=== PATIENT | male | born 1980 ===

== ENCOUNTER 2018-05-27 17:19 | Emergency (ER) | payer OTHER ==
[2018-05-27 17:43] VITALS: RESP 18
[2018-05-27] MEDS ORDERED: Lidocaine 5% Patch TD STA (18:59)
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
[2018-05-27] MEDS ORDERED: Lidocaine 5% Patch TD ONE (19:22)
[2018-05-27 19:58] VITALS: BP 120/75; PULSE 59; TEMP 98.4
[2018-05-27 20:12] VITALS: O2SAT 98
== END 2018-05-27 20:32 | disposition home or self-care (01) ==
LOC: C.ER 17:19
DX: S16.1XXA Strain of muscle, fascia and tendon at neck level, initial encounter (principal); V43.52XA Car driver injured in collision with other type car in traffic accident, initial encounter; M54.5 Low back pain
CPT/HCPCS: 96372; 99284; J1885